=== PATIENT | male | born 1990 | race African-American/Black ===

== ENCOUNTER 2024-08-08 04:17 | Emergency (ER) | payer OTHER, SELFPAY ==
[2024-08-08 04:22] VITALS: BP 146/92; PULSE 68; RESP 18; TEMP 36.9; O2SAT 100; BMI 20.6
--- NOTE | 2024-08-08 04:25 | RAD_ITS ---
INDICATION: injury EXAMINATION/TECHNIQUE: X-RAY - RIGHT XR Foot Min 3 Views 3 VIEWS COMPARISON: No relevant prior comparison study available FINDINGS: SOFT TISSUES: No soft tissue swelling or gas. No radiopaque foreign body. BONES/JOINTS: No acute fracture or subluxation.. Normal alignment. Preservation of the joint space.. No sclerotic or destructive changes observed. RAD/Foot min 3 Views IMPRESSION: Negative. Electronically Signed: Adele Russ MD at 7:18 EDT ,
[2024-08-08] MEDS: Diphth,Pertuss(Acell),Tet Vac 0.5 ML Vial IM (04:37)
[2024-08-08] MEDS: Ondansetron ODT 4 MG Tablet PO (04:37)
[2024-08-08] MEDS: morphine 10 MG/ML Syringe 8 MG IM (04:38)
[2024-08-08] MEDS: Lidocaine 2% /Epi 1:100 (20ml) 20 ML VIAL INFILT (04:38)
[2024-08-08 05:19] LABS: Absolute Lymphocyte Count 2.25 X10^3/uL (0.83-4.51); Absolute Neutrophil Count 1.6 X10^3/uL (2.0-7.7); Basophil# 0.01 X10^3/uL; Basophil% 0.2 % (0-1); Eosinophil# 0.32 X10^3/uL; Eosinophils% 6.9 % (0-5); Hematocrit 45.6 % (40-54); Hemoglobin 14.9 g/dL (13.0-16.5); Lymphocyte # 2.25 X10^3/ul (0.83-4.51); Lymphocyte % 48.3 % (19-41); Mean Corp Hgb Conc 32.7 g/dL (32-36); Mean Corpuscular Hgb 29.3 pg (27.0-32.0); Mean Corpuscular Volume 89.6 fL (80-94); Mean Platelet Vol. 9.6 fl (6.2-12.0); Monocyte# 0.44 X10^3/uL; Monocyte% 9.4 % (0-10); NRBC Flagged by Analyzer 0 % (0-5); Neutrophil # 1.63 X10^3/uL (2.7-7.7); Platelet Count 187 K/mm3 (150-450); RBC Distribution Width CV 11.9 % (11.6-14.6); RBC Distribution Width SD 38.5 fl (35.1-43.9); Red Blood Count 5.09 M/mm3 (4.6-6.2); White Blood Count 4.7 K/mm3 (4.4-11.0)
[2024-08-08] MEDS: TRANEXAMIC ACID 1,000 MG in 0.9% Normal Saline (100mL Bag) 100 ML 440 MG IV (05:25)
--- NOTE | 2024-08-08 05:31 | ED.RN ---
This RN with the assistance of the ipad hvac project engineer in order to obtain the required information to complete the FROI paperwork. This RN completed the FROI to the best of my ability, since there is no FROI written in [place] Creole. notified.
[2024-08-08 05:33] LABS: International Normalized Ratio 1.1; Prothrombin Time (Protime)PT. 14.4 SECONDS (11.7-14.9)
[2024-08-08 05:34] LABS: Partial Thromboplast Time 26.5 Seconds (24.1-36.2)
[2024-08-08 05:37] LABS: Anion Gap 5 (5-15); BUN 10 mg/dL (7-18); BUN/Creat Ratio 7.4 RATIO (10-20); Calcium,Total 8.7 mg/dL (8.5-10.1); Chloride 105 mmol/L (98-107); Creatinine, Serum 1.35 mg/dL (0.70-1.30); EST Glomerular Filtration Rate 63 mL/min (>60); Est Glom Filt Rate - Afr Amer 77 mL/min (>60); Estimated Creatinine Clearance 100.47 ml/min; Glucose 89 mg/dL (74-106); Potassium 3.3 mmol/L (3.5-5.1); Sodium Level 139 mmol/L (136-145)
--- NOTE | 2024-08-08 06:08 | EDS_ITS ---
HPI History of Present Illness Chief Complaint: Lower Extremity Injury Informant: patient and EMS Narrative Narrative: Patient is a 34-year-old male with no significant past medical history. He was at work this evening/morning when a stack of sheet-metal fell and struck him in the right foot. He was wearing his proper work attire but the sharpness and weight of the metal cut through the shoe and into his right foot. Patient reports that there was a great deal of blood upon the injury. He denies any history of bleeding disorder or blood thinner use. He states that he does not have any numbness or tingling or lack of motion. However because of the injury there was concern that he may need sutures and was sent to the hospital for evaluation Please note that the patient speaks a [place] Creole and deputy director of nursing was used for his evaluation. PFSH PFS Medical History no medical history Home Medications ?Medication ?Instructions ?Recorded ?Last Taken ?Type cephalexin 500 mg capsule 500 mg PO TID 7 days #21 caps 08/08/24 Unknown Rx oxycodone-acetaminophen 5 mg-325 1 tab PO Q6H PRN pain 3 days #12 08/08/24 Unknown Rx mg tablet (Percocet) tabs Allergy/AdvReac Type Severity Reaction Status Date / Time No Known Allergies Allergy Verified 08/08/24 04:22 Family History no significant family his Surgical History no surgical history Social History Smoking Status: Never smoker [facility] ED Constitutional Constitutional ED: Denies chills or fever(s) ENT ENT ED: Denies sore throat Cardiovascular Cardiovascular: Reports other Details: Negative syncope or lightheadedness ; Denies chest pain Respiratory/Chest Respiratory/Chest: Denies cough or dyspnea Gastrointestinal Gastrointestinal: Denies abdominal pain, diarrhea, nausea or vomiting Genitourinary Genitourinary ED: Denies dysuria Musculoskeletal Musculoskeletal: Reports other Details: Positive right foot pain Integumentary Reports other Details: Positive right foot laceration Neurologic Neurologic: Denies headache(s), paresthesias or weakness Hematologic/Lymphatic Hematologic/Lymphatic: Denies easy bleeding or easy bruising EXAM Physical Exam Const Vital Signs: 08/08/24 04:22 08/08/24 06:18 08/08/24 06:31 Temperature 98.4 F 98.5 F Temperature Source Oral Pulse Rate 68 62 59 L Respiratory Rate 18 16 16 Blood Pressure 146/92 H 133/81 H 127/88 H Blood Pressure Mean 110 98 101 Pulse Ox 100 99 99 Oxygen Delivery Method Room Air Room Air Positive well nourished and well developed General Appearance ED: well developed HEENT HEENT Narrative: Normocephalic atraumatic Eyes PERRL and EOMs intact bilaterally General Eye ED: Negative for pale conjunctiva Neck supple Resp normal respiratory effort and clear to auscultation bilaterally Cardio regular rate and regular rhythm Extremity Extremity Narrative: The patient has a horizontal 4.5cm subcutaneous deep laceration across the dorsum of his right foot approximately over top the cuboid and cuneiform bones. The patient has a combination of dark brisk venous bleeding in conjunction with bright red pulsatile bleeding consistent with an arterial injury. Despite the laceration/injury patient states he can feel on both the medial and lateral aspect of his foot. He is able to plantar and dorsiflex his foot as well. His capillary refill is less than 3 seconds bilaterally. No subungual hematoma noted Remainder of the exam is normal Neuro oriented x3, CN's II-XII intact bilaterally and no sensory deficits noted Sensorium / Orientation: alert Motor Exam: strength 5/5 throughout Psych mental status grossly normal Skin Skin Narrative: 4.5 cm horizontal/linear subcutaneous deep laceration across the dorsal aspect of the right foot over top of the cuneiform and cuboid bone that contains a combination of brisk venous and bright red pulsatile arterial bleeding. MDM MDM MDM Narrative Medical decision making narrative: Patient presented to the ER with stable vitals. Physical exam showed a single laceration to the dorsal aspect of his right foot. In conjunction with the laceration the patient has both venous and arterial bleeding. Initially a tourniquet was placed around the right lower leg but despite having this applied there is no improvement of the brisk flow blood. Therefore the tourniquet was removed after approximately 30 minutes. The patient's tetanus status was updated. As I was having difficulty getting the bleeding under control an IV was placed and blood work was obtained to check for potential acute blood loss anemia or thrombocytopenia or coagulation deficiencies. Patient was also given 1 g of TXA secondary to the persistent arterial bleed. There is also concern for retained foreign body or fracture based on the trauma so an x-ray was ordered. X-ray revealed no foreign body or fracture. Blood work revealed no cl inically significant findings. The patient had the bleeding artery closed with multiple pursestring Vicryl sutures as documented below. The wound was then watched for approximately 15 minutes and there was no return of bright red pulsatile blood so than the skin was closed as well. Following this a Doppler was used and I could not Doppler a pulse below the laceration indicating that the vessel injured was not the dorsalis pedis artery but most likely the arcutate artery. The case was discussed with podiatry on-call Dr. Adames. He agrees that at this time the patient does not have a fracture he does not have findings of a ligamentous or tendon injury and he is neurovascularly intact as he has equal posterior tibial pulses and bilateral dorsalis pedis pulses. He states that as the bleeding is now controlled there is not much further to do other than allow the wound to heal. Therefore there is no need for admission or emergent transfer. 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 The wound was copiously irrigated with normal saline. 10 mL of 2% lidocaine with epinephrine was injected in local fashion for anesthesia. Then five 4-0 Vicryl pursestring sutures were placed inside the wound in a subcutaneous manner causing good coagulation of the bleeding artery. Following this nine 3-0 Ethilon sutures were then placed in a simple interrupted fashion bring the wound edges the other well with close approximation. Patient tolerated the procedure well without complication History & Record Review Discussion w/independent historian: Patient Lab Data Attestation: I reviewed the patient's lab results. Labs: Laboratory Results - last 24 hr 08/08/24 05:00 WBC 4.7 RBC 5.09 Hgb 14.9 Hct 45.6 MCV 89.6 MCH 29.3 MCHC 32.7 RDW Std Deviation 38.5 RDW Coeff of Genesis 11.9 Plt Count 187 MPV 9.6 Immature Gran % (Auto) 0.200 Neut % (Auto) 35.0 L Lymph % (Auto) 48.3 H [place] % (Auto) 9.4 Eos % (Auto) 6.9 H Baso % (Auto) 0.2 Absolute Neuts (auto) 1.6 L Absolute Lymphs (auto) 2.25 Nucleated RBC % 0 PT 14.4 INR 1.1 APTT 26.5 Sodium 139 Potassium 3.3 L Chloride 105 Carbon Dioxide 29.0 Anion Gap 5 BUN 10 Creatinine 1.35 H Estim Creat Clear Calc 100.47 Est GFR (MDRD) Af Amer 77 Est GFR (MDRD) Non-Af 63 BUN/Creatinine Ratio 7.4 L Glucose 89 Calcium 8.7 Radiography Diagnostic Testing: X-ray of the right foot as interpreted by the emergency medicine physician reveals no acute fracture dislocation or retained foreign body Discharge Plan Triage Chief Complaint: Lower Extremity Injury ED Provider: Joe Chen Dx/Rx/DC Orders Clinical Impression: Laceration of dorsal artery of right foot, initial encounter Instructions: ED Laceration, Foot: All Closures Prescriptions: New cephalexin 500 mg capsule 500 mg PO TID 7 Days Qty: 21 0RF oxycodone-acetaminophen [Percocet] 5-325 mg tablet 1 tab PO Q6H PRN (Reason: pain) 3 Days Qty: 12 0RF Primary Care Provider: Care Physician,No Primary Referrals: Chuck Adames DPM [Med Staff - Active Staff] - Care Physician,No Primary [Primary Care Provider] - Activity Restrictions/Additional Instructions: A small amount of blood on your bandage is okay and consistent with normal healing. He will need to follow-up with podiatry as documented above for repeat evaluation. He will need to see the ER or Workmen's Compensation to have your sutures removed in approximately 10 days. Please change your bandage daily and wash area with soap and water to prevent infection. Based on the location of the cut please wear the postop shoe on your right foot while the wound is healing and not a normal shoe Print Language: [place] Disposition Disposition: Home, Self Care
[2024-08-08 06:18] VITALS: BP 133/81; PULSE 62; RESP 16; O2SAT 99
[2024-08-08 06:31] VITALS: BP 127/88; PULSE 59; RESP 16; TEMP 36.9; O2SAT 99
[2024-08-08] MEDS: Cephalexin 250 MG Capsule 500 MG PO (06:37)
[2024-08-08] MEDS: oxyCODONE 5 MG Tablet 10 MG PO (06:38)
== END 2024-08-08 07:06 | disposition home or self-care (01) ==
PROVIDERS: Emergency Provider Emergency Medicine; Visit Provider Emergency Medicine
DX: S95.011A Laceration of dorsal artery of right foot, initial encounter (principal); S91.311A Laceration without foreign body, right foot, initial encounter; W26.8XXA Contact with other sharp object(s), not elsewhere classified, initial encounter; Y99.0 Civilian activity done for income or pay; Z23 Encounter for immunization
CPT/HCPCS: 35226; 12032; 73630; 80048; 85025; 85610; 85730; 90471; 90715; 96365; 96372; 99285; A4216

== ENCOUNTER 2024-11-24 08:07 | Day surgery (SDC) | payer OTHER, SELFPAY ==
[2024-11-24] VITALS (13 sets, daily range): BP systolic 124–140; BP diastolic 70–91; PULSE 63–73; RESP 16–18; TEMP 36.4–37.1; O2SAT 99–100; BMI 26.8
[2024-11-24] MEDS: 0.9% Normal Saline (1000mL) 1,000 ML 15 ML IV (08:55)
[2024-11-24] MEDS: Acetaminophen 500 MG Tablet 1000 MG PO (08:56)
[2024-11-24] MEDS: Gabapentin 600 MG Tablet PO (08:57)
[2024-11-24 09:16] LABS: Magnesium 1.9 mg/dL (1.6-2.6)
--- NOTE | 2024-11-24 09:27 | PCM.PRE.AN2 ---
ASA Classification* ASA Classification ASA Classification: 2 Assessment & Plan Anesthesia* Anesthesia Assessment Anesthesia Assessment: Discussed sedation and/or anesthesia options, risks, benefits, and alternatives with patient/parents/legal guardian/POA. Questions invited. The patient/parents/legal guardian/POA seems to understand and agrees to proceed with anesthesia plan. Reviewed the physical assessment, medical history, allergy history and patient home medications list prior to surgery/procedure/anesthetic and documented any changes. Performed airway and anesthesia risk assessments. Anesthesia Type Anesthesia Type: MAC Anesthesia Focused Assessment* Temperature: 97.6 F Pulse Rate: 73 Blood Pressure: 140/83 Respiratory Rate: 16 Pulse Ox: 100 Airway Assessment Mouth opens: >3 cm Mallampati Score: II Teeth Condition: Intact Focused Labs Anesthesia Preop lab: CBC WBC 4.7 K/mm3 (4.4-11.0) 08/08/24 05:00 RBC 5.09 M/mm3 (4.6-6.2) 08/08/24 05:00 Hgb 14.9 g/dL (13.0-16.5) 08/08/24 05:00 Hct 45.6 % (40-54) 08/08/24 05:00 Plt Count 187 K/mm3 (150-450) 08/08/24 05:00 CHEMISTRY Potassium 3.3 mmol/L (3.5-5.1) L 08/08/24 05:00 Sodium 139 mmol/L (136-145) 08/08/24 05:00 Magnesium 1.9 mg/dL (1.6-2.6) 11/24/24 08:30 BUN 10 mg/dL (7-18) 08/08/24 05:00 Creatinine 1.35 mg/dL (0.70-1.30) H 08/08/24 05:00 Glucose 89 mg/dL (74-106) 08/08/24 05:00 POC Glucose 92 mg/dL (74-106) 11/24/24 08:38 COAG PT 14.4 SECONDS (11.7-14.9) 08/08/24 05:00 Pre-Assessment Diagnosis/Proposed Procedure Planned Operative Procedure(s): RIGHT FOOT EXTENSOR HALLUCIS LONGER TENDON REPAIR Anesthesia History 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 When Was Last Pacemaker Check QUESTION #4 FULL TEXT: You/Your Family Experience fever (hyperthermia) with Anesthesia Last Oral Intake Last Oral intake: Last Oral Intake NPO since 00:00 11/24/24 08:36 Meds taken in AM with sips of water? Meds patient instructed to take am of surgery PONV PONV - grinding operator: PONV - grinding operator Female No 11/16/24 08:29 HX of Motion Sickness No 11/16/24 08:29 HX of N/V After Surgery No 11/16/24 08:29 Non-Smoker Yes 11/16/24 08:29 Duration of Surgery greater Yes 11/16/24 08:29 than 60 minutes Number of Risk Factors 2 11/16/24 08:29 PONV Score Moderate Risk 11/16/24 08:29 Height & Weight Height & Weight: Anesthesia: Height & Weight Height 6 ft 11/24/24 08:36 Weight: 89.811 kg 11/24/24 08:36 Body Mass Index (BMI) 26.8 11/24/24 08:36 Respiratory Assessment Respiratory Assessment - grinding operator: Respiratory Tract Infection Hx - grinding operator Hx Respiratory Tract Infection No 11/16/24 08:29 STOP Sleep Apnea STOP Sleep Apnea - grinding operator: STOP Sleep Apnea - grinding operator Hx Hypertension No 11/16/24 08:29 Hx Sleep Apnea No 11/16/24 08:29 CPAP BIPAP Do you snore loudly (louder Yes 11/16/24 08:29 than talking or can be heard Do you often feel tired/ No 11/16/24 08:29 fatigued/ sleepy during daytime? Has anyone observed you stop No 11/16/24 08:29 breathing during sleep? STOP Results Negative 11/16/24 08:29 QUESTION #5 FULL TEXT : Do you snore loudly (louder than talking or can be heard through closed doors)? 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 Specify any problems Hx of Preganancy in last 3 N/A 11/16/24 08:29 Months Nurse Filling Out Transfusion DSCHRIBER 11/16/24 08:29 & Questions: Date: 11/16/24 11/16/24 08:29 Time: 08:33 11/16/24 08:29 Patient unable to answer at this time (ie. confused, unrespo /Reproduction History /Reproductive History - grinding operator: /Reproductive Hx- grinding operator Hx Now No 11/16/24 08:29 Gestational Age (in weeks): EDC: Hx Hx Para Hx Section SAB No 11/16/24 08:29 Active Medications Active Medications: Current Medications Generic Name Dose Route Start Last Admin Trade Name Freq PRN Reason Stop Dose Admin Cefazolin Sodium 2 gm/ N/A 20 mls @ 400 mls/hr 11/24/24 10:00 IV 11/24/24 10:02 PREOP ONE Sodium Chloride 1,000 mls @ 15 mls/hr 11/24/24 08:10 11/24/24 08:55 IV 11/29/24 21:29 15 mls/hr .Q48H ELYSSA Administration Protocol Magnesium Sulfate 2 gm/ 104 mls @ 208 mls/hr 11/24/24 09:25 Dextrose IV 11/24/24 09:54 X1 ONE Insulin Human Lispro 1 - 6 unit 11/24/24 08:15 Insulin Lispro 100 Unit/Ml Insuln.Pen SC Q4H PRN PRN BG>/= 180, SEE PROTOCOL Protocol PFSH Medical History Alcohol use Migraine headache Non-smoker History of pain when walking Home Medications ?Medication ?Instructions ?Recorded ?Last Taken ?Type oxycodone-acetaminophen 5 mg-325 1 tab PO Q6H PRN pain 3 days #12 08/08/24 Unknown Rx mg tablet (Percocet) tabs ascorbic acid (vitamin C) 1,000 mg 1 g PO DAILY 90 days #90 tabs 11/24/24 Unknown Rx tablet (Vitamin C) aspirin 81 mg tablet,delayed 81 mg PO DAILY 30 days #30 tabs 11/24/24 Unknown Rx release calcium 500 mg (as 1 tab PO DAILY 90 days #90 tabs 11/24/24 Unknown Rx carbonate)-vitamin D3 15 mcg (600 unit) tablet ([place] 500 + D3) cyclobenzaprine 10 mg tablet 10 mg PO TID muscle spasm 7 days 11/24/24 Unknown Rx #21 tabs docusate sodium 100 mg capsule 100 mg PO DAILY 10 days #10 caps 11/24/24 Unknown Rx (Colace) oxycodone-acetaminophen 5 mg-325 1 tab PO Q6H pain 7 days #28 tabs 11/24/24 Unknown Rx mg tablet (Percocet) Allergy/AdvReac Type Severity Reaction Status Date / Time No Known Allergies Allergy Verified 11/24/24 08:34 Surgical History (Updated 11/16/24 @ 08:50 by Juanis Cabral) No history of previous surgery Social History Smoking Status: Never smoker Review of Systems (Anesthesia) ROS Narrative System reviewed and no additional complaints, except as documented.
--- NOTE | 2024-11-24 09:38 | PRE.ANES_ITS ---
ASA Classification* ASA Classification ASA Classification: 2 Assessment & Plan Anesthesia* Anesthesia Assessment Anesthesia Assessment: Discussed sedation and/or anesthesia options, risks, benefits, and alternatives with patient/parents/legal guardian/POA. Questions invited. The patient/parents/legal guardian/POA seems to understand and agrees to proceed with anesthesia plan. Reviewed the physical assessment, medical history, allergy history and patient home medications list prior to surgery/procedure/anesthetic and documented any changes. Performed airway and anesthesia risk assessments. Anesthesia Type Anesthesia Type: General History Source History Obtained from:: Patient Anesthesia Focused Assessment* Temperature: 97.6 F Pulse Rate: 73 Blood Pressure: 140/83 Respiratory Rate: 16 Pulse Ox: 100 Oxygen Delivery Method: Room Air Airway Assessment Mouth opens: >3 cm Mallampati Score: II Teeth Condition: Intact Neck Range of motion (ROM): Full ROM Comment: Arianne blackburn Focused Labs Anesthesia Preop lab: CBC WBC 4.7 K/mm3 (4.4-11.0) 08/08/24 05:00 RBC 5.09 M/mm3 (4.6-6.2) 08/08/24 05:00 Hgb 14.9 g/dL (13.0-16.5) 08/08/24 05:00 Hct 45.6 % (40-54) 08/08/24 05:00 Plt Count 187 K/mm3 (150-450) 08/08/24 05:00 CHEMISTRY Potassium 3.3 mmol/L (3.5-5.1) L 08/08/24 05:00 Sodium 139 mmol/L (136-145) 08/08/24 05:00 Magnesium 1.9 mg/dL (1.6-2.6) 11/24/24 08:30 BUN 10 mg/dL (7-18) 08/08/24 05:00 Creatinine 1.35 mg/dL (0.70-1.30) H 08/08/24 05:00 Glucose 89 mg/dL (74-106) 08/08/24 05:00 COAG PT 14.4 SECONDS (11.7-14.9) 08/08/24 05:00 Pre-Assessment Diagnosis/Proposed Procedure Planned Operative Procedure(s): RIGHT FOOT EXTENSOR HALLUCIS LONGER TENDON REPAIR Anesthesia History 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 When Was Last Pacemaker Check QUESTION #4 FULL TEXT: You/Your Family Experience fever (hyperthermia) with Anesthesia Last Oral Intake Last Oral intake: Last Oral Intake NPO since 00:00 11/24/24 08:36 Meds taken in AM with sips of water? Meds patient instructed to take am of surgery PONV PONV - loft worker apprentice: PONV - loft worker apprentice Female No 11/16/24 08:29 HX of Motion Sickness No 11/16/24 08:29 HX of N/V After Surgery No 11/16/24 08:29 Non-Smoker Yes 11/16/24 08:29 Duration of Surgery greater Yes 11/16/24 08:29 than 60 minutes Number of Risk Factors 2 11/16/24 08:29 PONV Score Moderate Risk 11/16/24 08:29 Height & Weight Height & Weight: Anesthesia: Height & Weight Height 6 ft 11/24/24 08:36 Weight: 89.811 kg 11/24/24 08:36 Body Mass Index (BMI) 26.8 11/24/24 08:36 Respiratory Assessment Respiratory Assessment - loft worker apprentice: Respiratory Tract Infection Hx - loft worker apprentice Hx Respiratory Tract Infection No 11/16/24 08:29 STOP Sleep Apnea STOP Sleep Apnea - loft worker apprentice: STOP Sleep Apnea - loft worker apprentice Hx Hypertension No 11/16/24 08:29 Hx Sleep Apnea No 11/16/24 08:29 CPAP BIPAP Do you snore loudly (louder Yes 11/16/24 08:29 than talking or can be heard Do you often feel tired/ No 11/16/24 08:29 fatigued/ sleepy during daytime? Has anyone observed you stop No 11/16/24 08:29 breathing during sleep? STOP Results Negative 11/16/24 08:29 QUESTION #5 FULL TEXT : Do you snore loudly (louder than talking or can be heard through closed doors)? 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 Specify any problems Hx of Preganancy in last 3 N/A 11/16/24 08:29 Months Nurse Filling Out Transfusion DSCHRIBER 11/16/24 08:29 & Questions: Date: 11/16/24 11/16/24 08:29 Time: 08:33 11/16/24 08:29 Patient unable to answer at this time (ie. confused, unrespo /Reproduction History /Reproductive History - loft worker apprentice: /Reproductive Hx- loft worker apprentice Hx Now No 11/16/24 08:29 Gestational Age (in weeks): EDC: Hx Hx Para Hx Section SAB No 11/16/24 08:29 Active Medications Active Medications: Current Medications Generic Name Dose Route Start Last Admin Trade Name Freq PRN Reason Stop Dose Admin Cefazolin Sodium 2 gm/ N/A 20 mls @ 400 mls/hr 11/24/24 10:00 IV 11/24/24 10:02 PREOP ONE Sodium Chloride 1,000 mls @ 15 mls/hr 11/24/24 08:10 11/24/24 08:55 IV 11/29/24 21:29 15 mls/hr .Q48H ELYSSA Administration Protocol Magnesium Sulfate 2 gm/ 104 mls @ 208 mls/hr 11/24/24 09:25 Dextrose IV 11/24/24 09:54 X1 ONE Insulin Human Lispro 1 - 6 unit 11/24/24 08:15 Insulin Lispro 100 Unit/Ml Insuln.Pen SC Q4H PRN PRN BG>/= 180, SEE PROTOCOL Protocol PFSH Medical History Alcohol use Migraine headache Non-smoker History of pain when walking Home Medications ?Medication ?Instructions ?Recorded ?Last Taken ?Type oxycodone-acetaminophen 5 mg-325 1 tab PO Q6H PRN pain 3 days #12 08/08/24 Unknown Rx mg tablet (Percocet) tabs Allergy/AdvReac Type Severity Reaction Status Date / Time No Known Allergies Allergy Verified 11/24/24 08:34 Surgical History (Updated 11/16/24 @ 08:50 by Juanis Cabral) No history of previous surgery Social History Smoking Status: Never smoker Review of Systems (Anesthesia) ROS Narrative System reviewed and no additional complaints, except as documented.
[2024-11-24] MEDS: Magnesium 2 GM for ERAS IV (09:47)
[2024-11-24] MEDS: Cefazolin 2 GM in Syringe IV (10:38)
--- NOTE | 2024-11-24 10:41 | PCM.OPRPT ---
Problems Associated Problem List Diagnoses (1) Laceration without foreign body, right foot, initial encounter: (2) Laceration of muscle and tendon of long extensor muscle of toe at ankle and foot level, right foot, initial encounter: Operative Report (Standard) Operative Information Date of Procedure: 11/24/24 Pre-Operative Diagnosis: 1. Laceration to muscle and tendon of the long extensor, right lower extremity 2. Laceration without foreign body, right foot Post-Operative Diagnosis: 1. Laceration to muscle and tendon of the long extensor, right lower extremity 2. Laceration without foreign body, right foot Surgery/Procedure Performed: Procedure #1: Extensor hallucis longus tendon repair, right lower extremity telemarketing representative: Yes Hydraulic Riveter: Juan Magdaleno PGY2 Tasks completed by animal assistant: Opening & closing, Dissecting tissue, Removing tissue, Implanting device, Altering tissue and Retracting Additional assistant professor of theater?: No Type of Anesthesia: General and Local RN Documented Start/Stop Times: Operation Date: 11/24/24 10:00 Case Time Into Pre-Op 11/24/24 08:10 Out of Pre-Op 11/24/24 10:24 Anesthesia Start 11/24/24 10:27 Into Room 11/24/24 10:27 Procedure Start 11/24/24 10:48 Procedure End 11/24/24 12:25 Anesthesia End 11/24/24 12:34 Out of Room 11/24/24 12:34 Into Recovery 11/24/24 12:37 Out of Recovery 11/24/24 13:19 Into Phase II Recovery 11/24/24 13:20 Out of Phase II 11/24/24 14:32 Procedure Start Time: 10:48 Procedure Stop Time: 12:25 Select all DRAINS/GRAFTS/IMPLANTS that apply: Graft Graft details: Artelon 0.3 x 8.0 cm Special Medications: Per anesthesia Estimated Blood Loss: 30 mL Fluids Replaced: Per anesthesia Specimen collected: No Description of surgery: Indications For Operation: Mr. Saint Quinn Who was admitted to [facility] for the laceration of tendon and muscle to the long extensor of the right foot. Patient is well-known to my office and has been seen for treatment of laceration secondary to a job-related injury to the right foot. Patient did unfortunately have a setback during his treatment and ended up with a full-thickness wound secondary to getting the dressing wet. He was treated with excisional debridements and collagen application to the dorsal aspect of the left foot to the level of the left nose laceration. Patient made a uneventful recovery. Once cleared medically and approval from Workmen's Comp. was received, we move forward with surgical repair of the long extensor to the great toe of the right lower extremity. Patient was seen in private office with chart review and consent signed. Due to decreased range of motion of the big toe joint it was deemed necessary at this time to take the patient to the operating room to perform the above procedure with graft augmentation to help bring back range of motion to the great toe. The nature of the problem, anticipated procedures, postop recovery/convalences and risk/complications include but not limited to infection, wound healing complications, digital amputation, hypertrophic scarring, numbness, tingling, chronic pain, CRPS, over and under correction, recurrence of deformity, DVT and or PE and the need for further surgery have been discussed in great detail with the patient. All questions have been answered to the patient's satisfaction. There are no guarantees given as to the outcome of the procedure. Description of Procedure: Under mild sedation, the patient was brought into the operating room and placed on the operating table in supine position. Once the patient was under general anesthesia with laryngeal mask airway, the right lower extremity was blocked using approximately 30 cc 0.25% Marcaine plain. Next, a well-padded thigh tourniquet was applied to the right lower extremity. Next, the right lower extremity was prepped and draped in normal aseptic manner. Next, a timeout was then undertaken verifying the correct patient, extremity, visibility of preoperative markings, availability of the equipment. Next, attention was directed to the right lower extremity. Using a 4 inch Esmarch, right lower extremity was exsanguinated and elevated to 60 degrees for 1 minute. Procedure #1: Extensor hallucis longus tendon repair, right lower extremity (CPT code: 35030) Next, attention was directed to the dorsal aspect of the right foot. Using a sterile skin marker a incision line was marked out medial to the extensor hallucis longus tendon. Using a #15 blade a full-thickness is down to subcu tissue was performed. Care was to mine the existing tendon as well as to observe the area of rupture. Continued blunt dissection was carried down with moist Ray-Michael as well as with Metzenbaum scissors. The tendon was identified and a dorsal medial incision was made down to bone using a #15 blade with care not to disrupt the extensor hallucis longus tendon. The rupture of the tendon was identified and was approximately 5.0 cm in length. Care was to carefully dissect out the long extensor keeping it intact. Once the healthy bodies were identified the tendon was lacerated allowing for a end-to-end repair. Using Artelon 0.3 x 8 cm graft, the Artelon was augmented through the existing tendon to allow for better end to end repair. The Artelon was placed on each end of the extensor tendon and secured with 3-0 Monocryl via running locking suture technique. The right hallux was put through a range of motion and the extensor tendon show to be intact and holding well on the operating room table. The incision was flushed with copious normal saline. There showed some metallic changes along the laceration that the patient suffered prior to the procedure, the metallic foreign bodies were dissected out of the scar tissue and passed the back table to be discarded. Again the incision was flushed with copious normal saline. The deep layer of the sheath was reapproximated closed using 3-0 Monocryl and running locking suture technique. The extensor sheath was rewrapped along the tendon, reapproximated closed with 3-0 Monocryl and running locking suture technique. The tourniquet was deflated and reperfusion was noted instantly to the right lower extremity. All bleeders were ligated and cauterized as necessary. The subcutaneous layer was reapproximated closed using 3-0 Monocryl and running suture technique. The skin was reapproximated closed using 3-0 nylon in horizontal mattress suture technique. 1 cc of via flow was administered to the incision to help with healing and decrease adhesions. Again the right hallux was put through range of motion and you could see the tendon glide through the deep layer of the right foot. The right foot was wiped clean and patted dry. The incision was dressed with Betadine soaked Adaptic dry sterile dressing and a double layer Aguilera AO splint was applied to the right lower extremity. The patient tolerated the procedure and anesthesia well and apparent satisfactory condition and was transported to the PACU for further monitoring prior to discharge home. Vital signs stable and vascular status intact to all digits bilateral. Post Operative Plan: Weightbearing: Nonweightbearing to right lower extremity with assistive knee scooter and/or crutches. Full weightbearing left lower extremity. Antibiotics: 2 g Ancef through the IV DVT Prophylaxis: 81 mg aspirin Gutierrez: None Dressing: Betadine soaked Adaptic dry sterile dressing double layer Aguilera AO splint at 90 degrees. X-Rays: No x-rays taken for this case. Pain Medication: Percocet 5/325, Flexeril 10 mg Follow-up: Patient will follow-up in 1 week to 10 days in private office with Dr. Heredia. Surgical Findings: 1. Evidence of a 5 cm tendon rupture along the extensor hallucis longus tendon of the right foot. 2. End to end repair with augment of Artelon 0.3 x 8 cm graft. 3. Evidence of small metallic fragments noted at the level of the previous lacerations which were removed in total. Complications Complications: No Admit VTE Documentation VTE Present on Admission: No VTE Mechan Device Prophylaxis: SCD's VTE Pharm Prophylaxis ordered?: Yes
[2024-11-24] MEDS: Bupivacaine 0.25% 30 ML Vial (10:59)
--- NOTE | 2024-11-24 12:40 | PCM.POST.ANE ---
Anesthesia: Postop Eval I Current Vital Signs Temperature: 97.6 F Pulse Rate: 66 Blood Pressure: 138/91 Respiratory Rate: 18 Pulse Ox: 99 Assessment Airway patent: Yes Spontaneous unlabored respirations: Yes nausea: No Vomiting: No Anesthesia Complication: No Fluid Hydration Crystalloid volume administer (ml): 1,000 Total IV fluid infused: 1,000 Progress Note Anesthesia document: Postop Eval 1 completed: Yes
[2024-11-24 13:48] LABS: Bedside Glucose 92 mg/dL (74-106)
--- NOTE | 2024-11-24 14:10 | POSTOPAN2_ITS ---
Anesthesia Postop Eval I Sum Postop Eval Completion status Anesthesia document: Postop Eval 1 completed: Yes Anesthesia Postop Eval I Summary Anesthesia Postop Eval I Summary: Anesthesia Postop Eval I: Assessment Summary Airway patent Yes 11/24/24 14:10 RESIDENT [email or web address] Spontaneous unlabored Yes 11/24/24 14:10 RESIDENT [email or web address] respirations Mental status nausea No 11/24/24 14:10 RESIDENT [email or web address].[email or web address] Vomiting No 11/24/24 14:10 RESIDENT [email or web address].[email or web address] Anesthesia Postop Eval I: Fluid Summary Crystalloid volume administer 1,000 11/24/24 14:10 RESIDENT [email or web address] (ml) Colloids volume administered ( ml) Blood Product volume administered (ml) Total IV fluid infused 1,000 11/24/24 14:10 RESIDENT [email or web address] Anesthesia Postop Eval I: Summary Notes Anesthesia Complication No 11/24/24 14:10 RESIDENT [email or web address].CSIR Anesthesia Complication Comment: Post-operative progress note Anesthesia: Postop Eval II Evaluation Mental status: Awake and Calm Pain Level: 1 nausea: No Vomiting: No
--- NOTE | 2024-11-24 14:10 | PCM.POSTANE2 ---
Anesthesia Postop Eval I Sum Postop Eval Completion status Anesthesia document: Postop Eval 1 completed: Yes Anesthesia Postop Eval I Summary Anesthesia Postop Eval I Summary: Anesthesia Postop Eval I: Assessment Summary Airway patent Yes 11/24/24 14:10 TAIL [email or web address] Spontaneous unlabored Yes 11/24/24 14:10 TAIL [email or web address] respirations Mental status nausea No 11/24/24 14:10 TAIL PULLER.[email or web address] Vomiting No 11/24/24 14:10 TAIL [email or web address] Anesthesia Postop Eval I: Fluid Summary Crystalloid volume administer 1,000 11/24/24 14:10 TAIL [email or web address] (ml) Colloids volume administered ( ml) Blood Product volume administered (ml) Total IV fluid infused 1,000 11/24/24 14:10 TAIL PULLER.CSIR Anesthesia Postop Eval I: Summary Notes Anesthesia Complication No 11/24/24 14:10 TAIL [email or web address].CSIR Anesthesia Complication Comment: Post-operative progress note Anesthesia: Postop Eval II Evaluation Mental status: Awake and Calm Pain Level: 1 nausea: No Vomiting: No
== END 2024-11-24 14:32 | disposition home or self-care (01) ==
LOC: SDC 08:19 → AC 08:19
PROVIDERS: Referring Provider Podiatrist Foot & Ankle Surgery; Visit Provider Podiatrist Foot & Ankle Surgery
PROC: (CPT 28210; principal; 2024-11-24 09:45)
DX: S86.211A Strain of muscle(s) and tendon(s) of anterior muscle group at lower leg level, right leg, initial encounter (principal); S91.321A Laceration with foreign body, right foot, initial encounter; X58.XXXA Exposure to other specified factors, initial encounter; Y99.0 Civilian activity done for income or pay; Z79.82 Long term (current) use of aspirin; Z79.891 Long term (current) use of opiate analgesic; Z79.899 Other long term (current) drug therapy
CPT/HCPCS: 28210; 01470; 82962; 83735; J2405

== ENCOUNTER 2025-02-05 14:00 | Outpatient (RCR) | payer OTHER, SELFPAY ==
--- NOTE | 2025-01-08 14:15 | HP.PTEVAL_ITS ---
Patient's Visit Information Visit Information Visit Information: NNAMDI FARIA is a 34 year old M referred to Physical Therapy by Dr. Lele Heredia DPM with a diagnosis of Laceration R foot. Date of Evaluation: 01/08/25 Physical Therapist: Lionel Padron DPT, OCS, CSCS Visit Plan Frequency: 3x /Week Duration: 4 Weeks Plan: 3x/week for 4 weeks for 1. MH and STM to skin on top of R foot, mobs to ankle and metatarsals and encourage R big toe ROM, PROM. 2. ankle strngth adn proprioception progressing to gait training within tolerance. pt is currently in boot and WBAT. IE HEP: AP, towwel toe curls, DF PROM, PF PROM all given to patienet 3x/day with pics Subjective Subjective: Nnamdi goes by and uses for translation the phone. Co worker present(nurse). Says he works at [employer](doesn't speak great cambodian) She brought him today and is point of contact. He can read cambodian but does not speak it. She says he was unloading steel and it cut through his foot and cut dorsal artery. Had surgery to repair artery 5 weeks ago. Accident was in October. Seeing night coordinator. Walking NWB but doctor said he should not be using crutches. Boot is always on except at night. It has to be on until f/u which is 01/22/25. 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 It is light duty. 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 Walking now with crutches. Basic ADLs I. Plays [employer] in free time but not since last summer. Been at the [employer] for about a year. Codie [phone] Pain R foot: Pain Intensity (Out of 10): 1 Pain Intensity Range: 0 and 3 Comment: with walking. 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 Walks NWB with crutches and Boot into PT on R side. Walks without boot or crutches slowly in clinic careful of R foot but not overly painful, walks out of PT with boot, no crutches WBAT R. Transfers bed and chair I. Steps reciprocal up and using L on way down due to pain with Rfoot when planted. Requires rails. AROM R ankle -2 DF, 22 PF, 12 inv, 10 version, L is 55 PF, 4 DF, 35 inv and 20 eversion. Metatarsals are stiff on R vs L. Big to L moves well and R is unable to AROM extend but can flex. strength big toe ext 0 R and 4 L, flexion 4 R and 4 L. incision is top of R foot and healed well without excessive redness heat or swelling but is stuck to metatarsals at incision site. strength ankle 3+ R and 4 L ankle. knee is 4+ B in flexion ext. Pt does not push off with R when ambulating but able to heel raise and toe raise gingerly on R. Pt is numb top of R foot at incission and distal Communication today is with phone translation and /or broken cambodian, He also requested I tell his brother what is going on whom he called and Codie his work Nurse. Balance/Special Test Scores Lower Extremity Functional Score: 17 Goals Goal 1:: full aROM R ankle and mobiliy of metatarsals and skin on top of foot. Goal Time Frame: 4-6 Weeks Goal 2:: walk without pain or gait deviations community Goal Time Frame: 4-6 Weeks Goal 3:: steps reciprocally without rail. Goal Time Frame: 4-6 Weeks Goal 4:: Pt ready to get back to work full duty Goal Time Frame: 4-6 Weeks Rehabilitation Potential Physical Therapy Diagnosis: scarring and diminished ROM and strength effectin g R foot and mobility Rehabilitation Potential: Fair Anticipated Interventions Patient/Client Instruction: Educate patient on: Condition and Plan of Care For the Purpose of:: To decrease pain, To increase ROM, To improve nutrient delivery to tissue, To improve muscle performance and motor function, To increase tolerance to activity/condition/position, To improve ability of physical actions for home/community/work/leisure and To improve gait and locomotor functions Therapeutic Exercise to Include: Strength training, Flexibilty training, Passive ROM and Active ROM For the Purpose of:: To decrease pain, To increase ROM, To improve nutrient delivery to tissue, To improve muscle performance and motor function, To improve ability of physical actions for home/community/work/leisure and To improve gait and locomotor functions Manual Therapy Techniques to Include: Scar massage, Mobilization and Passive ROM For the Purpose of:: To decrease pain, To increase ROM and To improve nutrient delivery to tissue Thermo therapy (hot pack): Yes For the Purpose of:: To improve nutrient delivery to tissue and To increase oxygenation perfusion Text: Thank you for the opportunity to evaluate your patient. For Medicare and Medicare HMO plans, please review the plan of care and approve it. It will need to be FAXED BACK to us at [phone] for Medicare purposes. For Medicare only, by signing this I certify the plan of care. Please let me know if there are questions or concerns regarding this plan of care. Physician Signature:____ Date:
--- NOTE | 2025-02-05 15:09 | HP.PTDCSUM ---
Discharge Summary D/C summary: It has been my pleasure to treat ABISAI FARIA referred by Dr. Lele Heredia DPM, with the diagnosis of Laceration R foot for a total of 12 visit(s). Discharge Date: Please see the following information for a summary of their discharge status. Subjective Subjective: Pt and work frined with him today. Still complaining mostly about difficulty getting shoes on due to lack of toe extension ability. otherwise fearful of standing too long but not huge complaints of pain. Will see doctor next week and get other options. Pain R foot: Pain Intensity (Out of 10): 5 Overall Improvement % Improvement: 40 Objective Objective/Function: Walking with R avoidance of push off, can toe walk but painful. Steps are reciprocal up and down when encouraged but still painful descending with R. No big toe extension R foot. flexion is good and 4/5. No palpable tendon to big toe extension. scarring still over metatarsals and minimally sticking. Ankle aROM is funcitonal at 0 DF, 55 PF, 25 inv and 18 version. Not complaining of pain but fearful that it will get that way. Also hypr focussed on lack of toe extension and how hard it is to put shoe on. Goals Goal 1:: full aROM R ankle and mobiliy of metatarsals and skin on top of foot. Goal Progress: ankle met, progressing Goal 2:: walk without pain or gait deviations community Goal Progress: Progressing Goal 3:: steps reciprocally without rail. Goal Progress: Goal Met Goal 4:: Pt ready to get back to work full duty Goal Progress: Progressing Plan Plan: d/c, pt to doctor next week for other options with big toe. D/C Information d/c sentence: If there are questions or concerns regarding this patient's physical therapy, please feel free to call me at [phone]. Thank you for the referral of this patient. Sincerely, Lionel Padron, DPT, OCS, CSCS Balance/Gait/Functional tests Balance/Special Test Scores Lower Extremity Functional Score: 25 Improvement % Improvement: 40
== END 2025-02-05 19:00 | disposition home or self-care (01) ==
LOC: PT 14:00
PROVIDERS: Referring Provider Podiatrist Foot & Ankle Surgery; Visit Provider Podiatrist Foot & Ankle Surgery
DX: S91.311D Laceration without foreign body, right foot, subsequent encounter (principal)
CPT/HCPCS: 97110; 97140; 97161; 97530